=== PATIENT | male | born 1960 | race African-American/Black ===

== ENCOUNTER 2016-09-07 13:30 | Inpatient (IN) | payer OTHER ==
[2016-09-07 15:48] VITALS: BMI 27.6
[2016-09-07] MEDS ORDERED: MAG HYDROX/AL HYDROX/SIMETH 30 ML UNIT-DOSE CUP PO PRN (18:51)
[2016-09-07] MEDS ORDERED: MAGNESIUM CITRATE 300 ML BOTTLE PO PRN (18:51)
[2016-09-07] MEDS ORDERED: P-EPHED 60MG/TRIPROLIDI 2.5MG TABLET PO PRN (18:51)
[2016-09-07] MEDS ORDERED: ACETAMINOPHEN 325 MG TABLET (FP) PO PRN (18:51)
[2016-09-07] MEDS ORDERED: IBUPROFEN 400 MG TABLET (FP) PO PRN (18:51)
[2016-09-07] MEDS ORDERED: LOPERAMIDE HCL 2 MG CAPSULE PO PRN (18:51)
[2016-09-07] MEDS ORDERED: MAGNESIUM HYDROX 2400MG/30ML ORAL SUSPENSION 30 ML CUP PO PRN (18:51)
[2016-09-07] MEDS ORDERED: NICOTINE POLACRILEX 4 MG GUM BC PRN (18:51)
[2016-09-07] MEDS ORDERED: guaiFENesin/D-METHORPHAN HB 10 ML UNIT-DOSE CUPS PO PRN (18:51)
[2016-09-07] MEDS ORDERED: MENTHOL/PHENOL 1 EACH UD MM PRN (18:51)
--- NOTE | 2016-09-07 18:51 | HP ---
Admission ROS S - [facility] Chief Complaint: I WANT TO GO TO REHAB Allergies/Adverse Reactions: Allergies Allergy/AdvReac Type Severity Reaction Status Date / Time Penicillins Allergy Severe Swelling Verified 09/07/16 18:12 History of Present Illness: 55 YEARS OLD MALE WITH LONG HISTORY OF ALCOHOL OPIUM COCAINE NICOTINE DEPENDENCE HAS HYPERTENSION POSITIVE PPD AND DEPRESSION IS ADMITTED TO REHAB Exam Limitations: No Limitations - Ebola screening Have you traveled outside of the country in the last 21 days: No Have you had contact with anyone from an Ebola affected area: No Have you been sick,other than usual withdrawal symptoms: No Do you have a fever: No - Review of Systems Constitutional: Weight Stable EENT: reports: No Symptoms Reported Respiratory: reports: SOB with Exertion Cardiac: reports: No Symptoms Reported GI: reports: No Symptoms Reported : reports: No Symptoms Reported Musculoskeletal: reports: No Symptoms Reported Integumentary: reports: No Symptoms Reported Neuro: reports: No Symptoms reported Endocrine: reports: No Symptoms Reported Hematology: reports: No Symptoms Reported Psychiatric: reports: Judgement Intact, Orientated x3, Depressed Other Systems: Reviewed and Negative Patient History - Patient Medical History Hx Anemia: No Hx Asthma: No Hx Chronic Obstructive Pulmonary Disease (COPD): Yes Hx Cancer: No Hx Cardiac Disorders: No Hx Congestive Heart Failure: No Hx Hypertension: Yes Hx Hypercholesterolemia: No Hx Pacemaker: No HX Cerebrovascular Accident: No Hx Seizures: No Hx Dementia: No Hx Diabetes: No Hx Gastrointestinal Disorders: No Hx Liver Disease: No Hx Genitourinary Disorders: No Hx Renal Disease (ESRD): No Hx Thyroid Disease: No Hx Human Immunodeficiency Virus (HIV): No Hx Hepatitis C: No Hx Depression: Yes Hx Suicide Attempt: No Hx Bipolar Disorder: No Hx Schizophrenia: No - Patient Surgical History Past Surgical History: Yes Other Surgical History: 1987 THROAT CA CHEMO, SURGICAL 1994 REMISSION Anesthesia Reaction: No - PPD History Previous Implant?: Yes Documented Results: Positive w/proof Implanted On Prior [facility] Admission?: No PPD to be Administered?: No - Smoking Cessation Smoking history: Current every day smoker Have you smoked in the past 12 months: Yes Aproximately how many cigarettes per day: 20 Cigars Per Day: 0 Hx Chewing Tobacco Use: No Initiated information on smoking cessation: Yes 'Breaking Loose' booklet given: 09/07/16 - Substance & Tx. History Hx Alcohol Use: Yes Hx Substance Use: Yes Substance Use Type: Alcohol, Cocaine, Heroin Hx Substance Use Treatment: No - Substances Abused Alcohol Route: Oral Frequency: Daily Amount used: FIFTH RUM Age of first use: 9 Date of Last Use: 08/30/16 Heroin Route: Inhalation Frequency: Daily Amount used: 2 BAG Age of first use: 9 Date of Last Use: 08/30/16 Family Disease History - Family Disease History Family History: Unable to Obtain (ADOPTED) Admission Physical Exam [facility] - Vital Signs Vital Signs: Vital Signs - 24 hr 09/07/16 15:41 Temperature 98.6 F Pulse Rate 79 Respiratory 20 Rate Blood Pressure 196/100 - Physical General Appearance: Yes: No Apparent Distress, Nourished, Appropriately Dressed HEENTM: Yes: Hearing grossly Normal, Normal ENT Inspection, Normocephalic, Normal Voice Respiratory: Yes: Chest Non-Tender, No Respiratory Distress, No Accessory Muscle Use, Hyperresonant, Inspiration Neck: Yes: Supple, Trachea in good position Breast: Yes: Breasts Symetrical Cardiology: Yes: Regular Rhythm, Regular Rate, S1, S2 Abdominal: Yes: Non Tender, Soft Genitourinary: Yes: Within Normal Limits Back: Yes: Normal Inspection Musculoskeletal: Yes: full range of Motion, Gait Steady Extremities: Yes: Normal Inspection, Normal Range of Motion, Non-Tender Neurological: Yes: Fully Oriented, Alert, Motor Strength 5/5, Normal Mood/Affect , Normal Response Integumentary: Yes: Warm Lymphatic: Yes: Within Normal Limits - Diagnostic (1) Alcohol dependence with uncomplicated withdrawal Current Visit: Yes Status: Acute (2) Opioid dependence with withdrawal Current Visit: Yes Status: Acute (3) Cocaine dependence, uncomplicated Current Visit: Yes Status: Chronic (4) Positive PPD, treated Current Visit: Yes Status: Resolved (5) Hypertension Current Visit: Yes Status: Chronic Qualifiers: Hypertension type: essential hypertension Qualified Code(s): I10 - Essential (primary) hypertension (6) COPD (chronic obstructive pulmonary disease) Current Visit: Yes Status: Chronic Qualifiers: COPD type: emphysema Emphysema type: other Qualified Code(s): J43.8 - Other emphysema (7) Depression (emotion) Current Visit: Yes Status: Suspected Qualifiers: Depression Type: dysthymia Qualified Code(s): F34.1 - Dysthymic disorder Cleared for Admission [facility] - Detox or Rehab [facility] Level of Care: Observation Bed Detox Regimen/Protocol: Not Applicable Claeared for Rehab Admission: Yes [facility] Breath Alcohol Content Breath Alcohol Content: 0 Urine Drug Screen - Results Drug Screen Negative: No Urine Drug Screen Results: STEPHEN-Cocaine
[2016-09-07] MEDS: amLODIPine BESYLATE 10 MG TABLET (FP) PO SCH (20:51)
[2016-09-07] MEDS: diphenhydrAMINE HCL 50 MG CAPSULE PO PRN (20:51)
[2016-09-07] MEDS: THIAMINE HCL 100 MG TABLET (FP) PO SCH (21:52)
[2016-09-07 23:57] LABS: URINE APPEARANCE CLEAR; URINE BILIRUBIN NEGATIVE (NEGATIVE); URINE BLOOD NEGATIVE (NEGATIVE); URINE COLOR LTYELLOW; URINE GLUCOSE (UA) NEGATIVE (NEGATIVE); URINE KETONE NEGATIVE (NEGATIVE); URINE LEUK ESTERASE NEGATIVE (NEGATIVE); URINE NITRITE NEGATIVE (NEGATIVE); URINE UROBILINOGEN NEGATIVE E.U./dl (0.2-1.0)
[2016-09-07 23:59] LABS: URINE PROTEIN 1+ (NEGATIVE)
[2016-09-08 00:02] LABS: URINE MUCUS RARE; URINE WBC 1 /hpf (3-5)
[2016-09-08] MEDS: diphenhydrAMINE HCL 50 MG CAPSULE PO PRN ×2 (01:50→22:14)
[2016-09-08] MEDS: amLODIPine BESYLATE 10 MG TABLET (FP) PO SCH (08:00)
[2016-09-08] MEDS ORDERED: ALBUTEROL SO4 6.7 GM HFA INHALER IH PRN (09:28)
[2016-09-08] MEDS: NICOTINE 21 MG/24 HOURS TOPICAL PATCH TD SCH (09:37)
[2016-09-08] MEDS: PRENATAL VITAMINS W/ FOLIC ACID TABLET (FP) PO SCH (09:37)
--- NOTE | 2016-09-08 09:57 | EKG ---
Test Reason : Blood Pressure : / mmHG Vent. Rate : 076 BPM Atrial Rate : 076 BPM P-R Int : 144 ms QRS Dur : 084 ms QT Int : 428 ms P-R-T Axes : 072 071 062 degrees QTc Int : 481 ms NORMAL SINUS RHYTHM BIATRIAL ENLARGEMENT PROLONGED QT ABNORMAL ECG WHEN COMPARED WITH ECG OF 07-SEP-2016 20:18, NO SIGNIFICANT CHANGE WAS FOUND Confirmed by SAMSON DEMPSEY MD ([id number]) on 09/08/2016 9:57:22 AM Referred By: Confirmed By:SAMSON DEMPSEY MD
--- NOTE | 2016-09-08 09:58 | EKG ---
Test Reason : Blood Pressure : / mmHG Vent. Rate : 084 BPM Atrial Rate : 084 BPM P-R Int : 144 ms QRS Dur : 088 ms QT Int : 386 ms P-R-T Axes : 069 068 053 degrees QTc Int : 456 ms NORMAL SINUS RHYTHM BIATRIAL ENLARGEMENT POSSIBLE ANTERIOR INFARCT , AGE UNDETERMINED ABNORMAL ECG NO PREVIOUS ECGS AVAILABLE Confirmed by SAMSON DEMPSEY MD ([id number]) on 09/08/2016 9:58:41 AM Referred By: Confirmed By:SAMSON DEMPSEY MD
[2016-09-08] MEDS: FUROSEMIDE 20 MG TABLET (FP) PO SCH (11:46)
[2016-09-08] MEDS: SPIRONOLACTONE 25 MG TABLET (FP) PO SCH ×2 (11:46→18:40)
[2016-09-08] MEDS: ENALAPRIL MALEATE 10 MG TABLET (FP) PO SCH ×2 (11:46→22:13)
[2016-09-08 13:28] LABS: MCH 22.5 pg (25.7-33.7); MEAN CELL VOLUME 70.5 fl (80-96); MEAN PLT VOLUME 10.3 fl (7.5-11.1); RDW 25.8 % (11.9-15.9); WHITE BLOOD COUNT 9.2 K/mm3 (4.0-10.0)
[2016-09-08 13:38] LABS: ALBUMIN 3.9 g/dl (3.4-5.0); ALK PHOS 84 U/L (45-117); ANION GAP 12 (8-16); BILIRUBIN,TOTAL 0.4 mg/dL (0.2-1.0); CALCIUM 8.8 mg/dL (8.5-10.1); CO2 27 mmol/L (21-32); CREATININE 1.4 mg/dL (0.7-1.3); GLUCOSE,RANDOM 165 mg/dL (74-106); SGOT/AST 19 U/L (15-37); SGPT/ALT 28 U/L (12-78); TOT PROT 7.7 g/dl (6.4-8.2)
[2016-09-08 13:50] LABS: PLATELET COUNT 144 K/MM3 (134-434); PLATELET ESTIMATE ADEQUATE (NORMAL)
[2016-09-08 13:51] LABS: ANISOCYTOSIS 1+; FRAGMENTED CELL 1+; HYPOCHROMIA 1+; OVALOCYTES 2+; PLATELET COMMENT2 MOD LARGE PLTS; PLATELET COMMENT3 FEW GIANT PLTS; POIKILOCYTOSIS 2+
[2016-09-08 13:52] LABS: ACANTHOCYTES 1+; BURR CELLS 3+
--- NOTE | 2016-09-08 14:03 | PN ---
[facility] Progress Note Note: Pt. did not tell us that he has type II DM,asthma and takes at least 3 meds for HTN. Vital Signs - 8 hr 09/08/16 09/08/16 09:27 09:28 Pulse Rate 81 86 Respiratory 18 18 Rate Blood Pressure 148/102 159/104 Laboratory Tests 09/07/16 09/08/16 09/08/16 20:27 09:40 09:40 WBC 9.2 RBC 5.92 H Hgb 13.3 Hct 41.7 MCV 70.5 L MCHC 32.0 RDW 25.8 H Plt Count 144 MPV 10.3 Platelet Estimate Adequate Platelet Comment Mod large plts Hypochromic-Microcytic 1+ Poikilocytosis 2+ Anisocytosis 1+ Ovalocytes 2+ Stephenson Cells 3+ Acanthocytes (Spur) 1+ Fragmented RBCs 1+ Morphology Comment Slide scanned Sodium 141 Potassium 3.7 Chloride 102 Carbon Dioxide 27 Anion Gap 12 BUN 14 Creatinine 1.4 H Creat Clearance w eGFR 52.24 Random Glucose 165 H Calcium 8.8 Total Bilirubin 0.4 AST 19 ALT 28 Alkaline Phosphatase 84 Total Protein 7.7 Albumin 3.9 Urine Color Ltyellow Urine Appearance Clear Urine pH 5.0 Ur Specific [place] 1.020 Urine Protein 1+ H Urine Glucose (UA) Negative Urine Ketones Negative Urine Blood Negative Urine Nitrite Negative Urine Bilirubin Negative Urine Urobilinogen Negative Ur Leukocyte Esterase Negative Urine RBC None Urine WBC 1 Urine Mucus Rare labs noted,creatinine 1.4 P : Resume metformin Increase PO fluid Repeat BMP on 09/10/16
[2016-09-08] MEDS: metFORMIN HCL 500 MG TABLET (FP) PO SCH (16:34)
[2016-09-08] MEDS: THIAMINE HCL 100 MG TABLET (FP) PO SCH (22:13)
[2016-09-08] MEDS: ATORVASTATIN CA 20 MG TABLET (FP) PO SCH (22:13)
[2016-09-09] MEDS: diphenhydrAMINE HCL 50 MG CAPSULE PO PRN ×2 (02:02→21:20)
[2016-09-09] MEDS: metFORMIN HCL 500 MG TABLET (FP) PO SCH ×2 (06:45→16:46)
[2016-09-09] MEDS ORDERED: amLODIPine BESYLATE 10 MG TABLET (FP) PO SCH (07:36)
[2016-09-09] MEDS: PRENATAL VITAMINS W/ FOLIC ACID TABLET (FP) PO SCH (09:34)
[2016-09-09] MEDS: NICOTINE 21 MG/24 HOURS TOPICAL PATCH TD SCH (09:35)
[2016-09-09] MEDS: SPIRONOLACTONE 25 MG TABLET (FP) PO SCH ×2 (09:35→17:59)
[2016-09-09] MEDS: ENALAPRIL MALEATE 10 MG TABLET (FP) PO SCH ×2 (09:35→21:20)
[2016-09-09] MEDS: FUROSEMIDE 20 MG TABLET (FP) PO SCH (09:35)
[2016-09-09] MEDS: ATORVASTATIN CA 20 MG TABLET (FP) PO SCH (21:20)
[2016-09-09] MEDS: THIAMINE HCL 100 MG TABLET (FP) PO SCH (21:20)
[2016-09-10] MEDS: diphenhydrAMINE HCL 50 MG CAPSULE PO PRN (01:28)
[2016-09-10] MEDS: amLODIPine BESYLATE 10 MG TABLET (FP) PO SCH (06:27)
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
[2016-09-10] MEDS: metFORMIN HCL 500 MG TABLET (FP) PO SCH ×2 (07:08→16:49)
[2016-09-10] MEDS: SPIRONOLACTONE 25 MG TABLET (FP) PO SCH ×2 (09:46→17:06)
[2016-09-10] MEDS: PRENATAL VITAMINS W/ FOLIC ACID TABLET (FP) PO SCH (09:46)
[2016-09-10] MEDS: FUROSEMIDE 20 MG TABLET (FP) PO SCH (09:46)
[2016-09-10] MEDS: NICOTINE 21 MG/24 HOURS TOPICAL PATCH TD SCH (09:47)
[2016-09-10] MEDS: ENALAPRIL MALEATE 10 MG TABLET (FP) PO SCH ×2 (10:46→21:34)
[2016-09-10 20:09] LABS: HIV 1 & 2 AB NEGATIVE; HIV 1 AGp24 NEGATIVE
[2016-09-10] MEDS: THIAMINE HCL 100 MG TABLET (FP) PO SCH (21:32)
[2016-09-10] MEDS: ATORVASTATIN CA 20 MG TABLET (FP) PO SCH (21:32)
[2016-09-10] MEDS: QUEtiapine FUMARATE 100 MG TABLET (FP) PO SCH (21:34)
[2016-09-10] MEDS: MIRTAZAPINE 30 MG TABLET (FP) PO SCH (21:34)
[2016-09-11] MEDS: amLODIPine BESYLATE 10 MG TABLET (FP) PO SCH (06:10)
[2016-09-11] MEDS: metFORMIN HCL 500 MG TABLET (FP) PO SCH ×2 (07:17→16:53)
[2016-09-11] MEDS: PRENATAL VITAMINS W/ FOLIC ACID TABLET (FP) PO SCH (09:38)
[2016-09-11] MEDS: ENALAPRIL MALEATE 10 MG TABLET (FP) PO SCH ×2 (09:38→21:53)
[2016-09-11] MEDS: SPIRONOLACTONE 25 MG TABLET (FP) PO SCH ×2 (09:39→17:10)
[2016-09-11] MEDS: FUROSEMIDE 20 MG TABLET (FP) PO SCH (09:39)
[2016-09-11] MEDS: NICOTINE 21 MG/24 HOURS TOPICAL PATCH TD SCH (10:33)
[2016-09-11] MEDS: THIAMINE HCL 100 MG TABLET (FP) PO SCH (21:52)
[2016-09-11] MEDS: MIRTAZAPINE 30 MG TABLET (FP) PO SCH (21:52)
[2016-09-11] MEDS: QUEtiapine FUMARATE 100 MG TABLET (FP) PO SCH (21:52)
[2016-09-11] MEDS: ATORVASTATIN CA 20 MG TABLET (FP) PO SCH (21:53)
[2016-09-11] MEDS: diphenhydrAMINE HCL 50 MG CAPSULE PO PRN (21:53)
[2016-09-12] MEDS: amLODIPine BESYLATE 10 MG TABLET (FP) PO SCH (06:46)
[2016-09-12] MEDS: metFORMIN HCL 500 MG TABLET (FP) PO SCH ×2 (07:17→16:54)
[2016-09-12] MEDS: PRENATAL VITAMINS W/ FOLIC ACID TABLET (FP) PO SCH (10:01)
[2016-09-12] MEDS: SPIRONOLACTONE 25 MG TABLET (FP) PO SCH ×2 (10:01→18:05)
[2016-09-12] MEDS: FUROSEMIDE 20 MG TABLET (FP) PO SCH (10:02)
[2016-09-12] MEDS: NICOTINE 21 MG/24 HOURS TOPICAL PATCH TD SCH (10:02)
[2016-09-12] MEDS: ENALAPRIL MALEATE 10 MG TABLET (FP) PO SCH ×2 (10:02→21:18)
[2016-09-12] MEDS: THIAMINE HCL 100 MG TABLET (FP) PO SCH (21:16)
[2016-09-12] MEDS: ATORVASTATIN CA 20 MG TABLET (FP) PO SCH (21:16)
[2016-09-12] MEDS: MIRTAZAPINE 30 MG TABLET (FP) PO SCH (21:16)
[2016-09-12] MEDS: QUEtiapine FUMARATE 100 MG TABLET (FP) PO SCH (21:16)
[2016-09-12] MEDS: diphenhydrAMINE HCL 50 MG CAPSULE PO PRN (21:16)
[2016-09-13] MEDS: amLODIPine BESYLATE 10 MG TABLET (FP) PO SCH (06:29)
[2016-09-13] MEDS: metFORMIN HCL 500 MG TABLET (FP) PO SCH ×2 (06:29→17:14)
[2016-09-13] MEDS: ENALAPRIL MALEATE 10 MG TABLET (FP) PO SCH ×2 (10:11→22:01)
[2016-09-13] MEDS: FUROSEMIDE 20 MG TABLET (FP) PO SCH (10:11)
[2016-09-13] MEDS: SPIRONOLACTONE 25 MG TABLET (FP) PO SCH ×2 (10:11→17:14)
[2016-09-13] MEDS: PRENATAL VITAMINS W/ FOLIC ACID TABLET (FP) PO SCH (10:11)
[2016-09-13] MEDS: NICOTINE 21 MG/24 HOURS TOPICAL PATCH TD SCH (10:12)
[2016-09-13] MEDS: THIAMINE HCL 100 MG TABLET (FP) PO SCH (22:01)
[2016-09-13] MEDS: MIRTAZAPINE 30 MG TABLET (FP) PO SCH (22:01)
[2016-09-13] MEDS: diphenhydrAMINE HCL 50 MG CAPSULE PO PRN (22:01)
[2016-09-13] MEDS: ATORVASTATIN CA 20 MG TABLET (FP) PO SCH (22:02)
[2016-09-13] MEDS: QUEtiapine FUMARATE 100 MG TABLET (FP) PO SCH (22:02)
[2016-09-14] MEDS: metFORMIN HCL 500 MG TABLET (FP) PO SCH ×2 (06:07→16:56)
[2016-09-14] MEDS: amLODIPine BESYLATE 10 MG TABLET (FP) PO SCH (06:07)
[2016-09-14] MEDS: PRENATAL VITAMINS W/ FOLIC ACID TABLET (FP) PO SCH (09:48)
[2016-09-14] MEDS: NICOTINE 21 MG/24 HOURS TOPICAL PATCH TD SCH (09:48)
[2016-09-14] MEDS: SPIRONOLACTONE 25 MG TABLET (FP) PO SCH ×2 (09:48→17:14)
[2016-09-14] MEDS: ENALAPRIL MALEATE 10 MG TABLET (FP) PO SCH ×2 (09:48→21:20)
[2016-09-14] MEDS: FUROSEMIDE 20 MG TABLET (FP) PO SCH (09:48)
[2016-09-14] MEDS: diphenhydrAMINE HCL 50 MG CAPSULE PO PRN (21:20)
[2016-09-14] MEDS: ATORVASTATIN CA 20 MG TABLET (FP) PO SCH (21:20)
[2016-09-14] MEDS: QUEtiapine FUMARATE 100 MG TABLET (FP) PO SCH (21:20)
[2016-09-14] MEDS: THIAMINE HCL 100 MG TABLET (FP) PO SCH (21:20)
[2016-09-14] MEDS: MIRTAZAPINE 30 MG TABLET (FP) PO SCH (21:22)
[2016-09-15] MEDS: amLODIPine BESYLATE 10 MG TABLET (FP) PO SCH (06:21)
[2016-09-15] MEDS: metFORMIN HCL 500 MG TABLET (FP) PO SCH ×2 (06:59→17:02)
[2016-09-15] MEDS: ENALAPRIL MALEATE 10 MG TABLET (FP) PO SCH ×2 (09:37→21:23)
[2016-09-15] MEDS: SPIRONOLACTONE 25 MG TABLET (FP) PO SCH ×2 (09:37→17:02)
[2016-09-15] MEDS: PRENATAL VITAMINS W/ FOLIC ACID TABLET (FP) PO SCH (09:37)
[2016-09-15] MEDS: FUROSEMIDE 20 MG TABLET (FP) PO SCH (09:37)
[2016-09-15] MEDS: NICOTINE 21 MG/24 HOURS TOPICAL PATCH TD SCH (09:38)
[2016-09-15] MEDS: diphenhydrAMINE HCL 50 MG CAPSULE PO PRN (21:23)
[2016-09-15] MEDS: ATORVASTATIN CA 20 MG TABLET (FP) PO SCH (21:23)
[2016-09-15] MEDS: QUEtiapine FUMARATE 100 MG TABLET (FP) PO SCH (21:23)
[2016-09-15] MEDS: MIRTAZAPINE 30 MG TABLET (FP) PO SCH (21:23)
[2016-09-15] MEDS: THIAMINE HCL 100 MG TABLET (FP) PO SCH (21:23)
[2016-09-16] MEDS: amLODIPine BESYLATE 10 MG TABLET (FP) PO SCH (06:36)
[2016-09-16] MEDS: metFORMIN HCL 500 MG TABLET (FP) PO SCH ×2 (07:07→16:58)
[2016-09-16] MEDS: NICOTINE 21 MG/24 HOURS TOPICAL PATCH TD SCH (10:37)
[2016-09-16] MEDS: PRENATAL VITAMINS W/ FOLIC ACID TABLET (FP) PO SCH (10:37)
[2016-09-16] MEDS: FUROSEMIDE 20 MG TABLET (FP) PO SCH (10:37)
[2016-09-16] MEDS: ENALAPRIL MALEATE 10 MG TABLET (FP) PO SCH ×2 (10:37→21:22)
[2016-09-16] MEDS: SPIRONOLACTONE 25 MG TABLET (FP) PO SCH ×2 (14:36→17:24)
[2016-09-16] MEDS: THIAMINE HCL 100 MG TABLET (FP) PO SCH (21:22)
[2016-09-16] MEDS: QUEtiapine FUMARATE 100 MG TABLET (FP) PO SCH (21:22)
[2016-09-16] MEDS: ATORVASTATIN CA 20 MG TABLET (FP) PO SCH (21:22)
[2016-09-16] MEDS: MIRTAZAPINE 30 MG TABLET (FP) PO SCH (21:22)
[2016-09-17] MEDS: amLODIPine BESYLATE 10 MG TABLET (FP) PO SCH (06:11)
[2016-09-17] MEDS: metFORMIN HCL 500 MG TABLET (FP) PO SCH ×2 (07:19→16:57)
[2016-09-17] MEDS: SPIRONOLACTONE 25 MG TABLET (FP) PO SCH ×2 (10:47→17:58)
[2016-09-17] MEDS: NICOTINE 21 MG/24 HOURS TOPICAL PATCH TD SCH (10:47)
[2016-09-17] MEDS: FUROSEMIDE 20 MG TABLET (FP) PO SCH (10:47)
[2016-09-17] MEDS: ENALAPRIL MALEATE 10 MG TABLET (FP) PO SCH ×2 (10:47→21:35)
[2016-09-17] MEDS: PRENATAL VITAMINS W/ FOLIC ACID TABLET (FP) PO SCH (10:47)
[2016-09-17] MEDS: QUEtiapine FUMARATE 100 MG TABLET (FP) PO SCH (21:35)
[2016-09-17] MEDS: MIRTAZAPINE 30 MG TABLET (FP) PO SCH (21:35)
[2016-09-17] MEDS: diphenhydrAMINE HCL 50 MG CAPSULE PO PRN (21:35)
[2016-09-17] MEDS: THIAMINE HCL 100 MG TABLET (FP) PO SCH (21:35)
[2016-09-17] MEDS: ATORVASTATIN CA 20 MG TABLET (FP) PO SCH (21:35)
[2016-09-18] MEDS: amLODIPine BESYLATE 10 MG TABLET (FP) PO SCH (06:05)
[2016-09-18] MEDS: metFORMIN HCL 500 MG TABLET (FP) PO SCH ×2 (06:05→17:25)
[2016-09-18] MEDS: SPIRONOLACTONE 25 MG TABLET (FP) PO SCH ×2 (09:50→17:49)
[2016-09-18] MEDS: PRENATAL VITAMINS W/ FOLIC ACID TABLET (FP) PO SCH (09:50)
[2016-09-18] MEDS: ENALAPRIL MALEATE 10 MG TABLET (FP) PO SCH ×2 (09:50→21:26)
[2016-09-18] MEDS: FUROSEMIDE 20 MG TABLET (FP) PO SCH (09:50)
[2016-09-18] MEDS: MIRTAZAPINE 30 MG TABLET (FP) PO SCH (21:26)
[2016-09-18] MEDS: THIAMINE HCL 100 MG TABLET (FP) PO SCH (21:26)
[2016-09-18] MEDS: ATORVASTATIN CA 20 MG TABLET (FP) PO SCH (21:27)
[2016-09-18] MEDS: QUEtiapine FUMARATE 100 MG TABLET (FP) PO SCH (21:27)
[2016-09-19] MEDS: hydrOXYzine PAMOATE 50 MG CAPSULE (FP) PO PRN (03:52)
[2016-09-19] MEDS: amLODIPine BESYLATE 10 MG TABLET (FP) PO SCH (06:29)
[2016-09-19] MEDS: metFORMIN HCL 500 MG TABLET (FP) PO SCH ×2 (07:03→16:39)
[2016-09-19] MEDS: FUROSEMIDE 20 MG TABLET (FP) PO SCH (09:29)
[2016-09-19] MEDS: PRENATAL VITAMINS W/ FOLIC ACID TABLET (FP) PO SCH (09:29)
[2016-09-19] MEDS: ENALAPRIL MALEATE 10 MG TABLET (FP) PO SCH ×2 (09:29→21:26)
[2016-09-19] MEDS: SPIRONOLACTONE 25 MG TABLET (FP) PO SCH ×2 (09:29→17:02)
[2016-09-19] MEDS: MIRTAZAPINE 30 MG TABLET (FP) PO SCH (21:26)
[2016-09-19] MEDS: ATORVASTATIN CA 20 MG TABLET (FP) PO SCH (21:26)
[2016-09-19] MEDS: QUEtiapine FUMARATE 100 MG TABLET (FP) PO SCH (21:26)
[2016-09-19] MEDS: THIAMINE HCL 100 MG TABLET (FP) PO SCH (21:26)
[2016-09-19] MEDS: diphenhydrAMINE HCL 50 MG CAPSULE PO PRN (21:26)
[2016-09-20] MEDS: hydrOXYzine PAMOATE 50 MG CAPSULE (FP) PO PRN (02:56)
[2016-09-20] MEDS: amLODIPine BESYLATE 10 MG TABLET (FP) PO SCH (05:52)
[2016-09-20] MEDS: metFORMIN HCL 500 MG TABLET (FP) PO SCH ×2 (06:41→16:29)
[2016-09-20] MEDS: PRENATAL VITAMINS W/ FOLIC ACID TABLET (FP) PO SCH (09:40)
[2016-09-20] MEDS: ENALAPRIL MALEATE 10 MG TABLET (FP) PO SCH ×2 (09:40→21:03)
[2016-09-20] MEDS: FUROSEMIDE 20 MG TABLET (FP) PO SCH (09:41)
[2016-09-20] MEDS: SPIRONOLACTONE 25 MG TABLET (FP) PO SCH ×2 (09:41→17:02)
[2016-09-20] MEDS: ATORVASTATIN CA 20 MG TABLET (FP) PO SCH (21:03)
[2016-09-20] MEDS: QUEtiapine FUMARATE 100 MG TABLET (FP) PO SCH (21:03)
[2016-09-20] MEDS: MIRTAZAPINE 30 MG TABLET (FP) PO SCH (21:04)
[2016-09-20] MEDS: diphenhydrAMINE HCL 50 MG CAPSULE PO PRN (21:04)
[2016-09-20] MEDS: THIAMINE HCL 100 MG TABLET (FP) PO SCH (21:04)
[2016-09-21] MEDS: amLODIPine BESYLATE 10 MG TABLET (FP) PO SCH (05:59)
[2016-09-21] MEDS: metFORMIN HCL 500 MG TABLET (FP) PO SCH ×2 (05:59→16:44)
[2016-09-21] MEDS: SPIRONOLACTONE 25 MG TABLET (FP) PO SCH ×2 (09:39→17:05)
[2016-09-21] MEDS: FUROSEMIDE 20 MG TABLET (FP) PO SCH (09:39)
[2016-09-21] MEDS: ENALAPRIL MALEATE 10 MG TABLET (FP) PO SCH ×2 (09:39→21:32)
[2016-09-21] MEDS: PRENATAL VITAMINS W/ FOLIC ACID TABLET (FP) PO SCH (09:40)
[2016-09-21] MEDS: ATORVASTATIN CA 20 MG TABLET (FP) PO SCH (21:32)
[2016-09-21] MEDS: diphenhydrAMINE HCL 50 MG CAPSULE PO PRN (21:32)
[2016-09-21] MEDS: QUEtiapine FUMARATE 100 MG TABLET (FP) PO SCH (21:32)
[2016-09-21] MEDS: MIRTAZAPINE 30 MG TABLET (FP) PO SCH (21:32)
[2016-09-21] MEDS: THIAMINE HCL 100 MG TABLET (FP) PO SCH (21:32)
[2016-09-22] MEDS: metFORMIN HCL 500 MG TABLET (FP) PO SCH ×2 (06:31→17:20)
[2016-09-22] MEDS: amLODIPine BESYLATE 10 MG TABLET (FP) PO SCH (06:31)
[2016-09-22] MEDS: PRENATAL VITAMINS W/ FOLIC ACID TABLET (FP) PO SCH (09:33)
[2016-09-22] MEDS: FUROSEMIDE 20 MG TABLET (FP) PO SCH (09:33)
[2016-09-22] MEDS: SPIRONOLACTONE 25 MG TABLET (FP) PO SCH ×2 (09:34→17:46)
[2016-09-22] MEDS: ENALAPRIL MALEATE 10 MG TABLET (FP) PO SCH ×2 (09:34→21:01)
[2016-09-22] MEDS: ATORVASTATIN CA 20 MG TABLET (FP) PO SCH (21:01)
[2016-09-22] MEDS: THIAMINE HCL 100 MG TABLET (FP) PO SCH (21:01)
[2016-09-22] MEDS: QUEtiapine FUMARATE 100 MG TABLET (FP) PO SCH (21:01)
[2016-09-22] MEDS: MIRTAZAPINE 30 MG TABLET (FP) PO SCH (21:01)
[2016-09-22] MEDS: diphenhydrAMINE HCL 50 MG CAPSULE PO PRN (21:02)
[2016-09-23] MEDS: metFORMIN HCL 500 MG TABLET (FP) PO SCH ×2 (06:19→17:20)
[2016-09-23] MEDS: amLODIPine BESYLATE 10 MG TABLET (FP) PO SCH (06:19)
[2016-09-23] MEDS: PRENATAL VITAMINS W/ FOLIC ACID TABLET (FP) PO SCH (09:33)
[2016-09-23] MEDS: ENALAPRIL MALEATE 10 MG TABLET (FP) PO SCH ×2 (09:33→21:53)
[2016-09-23] MEDS: SPIRONOLACTONE 25 MG TABLET (FP) PO SCH ×2 (09:33→17:20)
[2016-09-23] MEDS: FUROSEMIDE 20 MG TABLET (FP) PO SCH (09:33)
[2016-09-23] MEDS: ATORVASTATIN CA 20 MG TABLET (FP) PO SCH (21:53)
[2016-09-23] MEDS: THIAMINE HCL 100 MG TABLET (FP) PO SCH (21:53)
[2016-09-23] MEDS: QUEtiapine FUMARATE 100 MG TABLET (FP) PO SCH (21:53)
[2016-09-23] MEDS: MIRTAZAPINE 30 MG TABLET (FP) PO SCH (21:53)
[2016-09-24] MEDS: amLODIPine BESYLATE 10 MG TABLET (FP) PO SCH (06:15)
[2016-09-24] MEDS: metFORMIN HCL 500 MG TABLET (FP) PO SCH ×2 (06:15→16:37)
[2016-09-24] MEDS: ENALAPRIL MALEATE 10 MG TABLET (FP) PO SCH ×2 (09:49→21:34)
[2016-09-24] MEDS: SPIRONOLACTONE 25 MG TABLET (FP) PO SCH ×2 (09:49→17:01)
[2016-09-24] MEDS: PRENATAL VITAMINS W/ FOLIC ACID TABLET (FP) PO SCH (09:50)
[2016-09-24] MEDS: FUROSEMIDE 20 MG TABLET (FP) PO SCH (09:50)
[2016-09-24] MEDS: QUEtiapine FUMARATE 100 MG TABLET (FP) PO SCH (21:34)
[2016-09-24] MEDS: diphenhydrAMINE HCL 50 MG CAPSULE PO PRN (21:34)
[2016-09-24] MEDS: THIAMINE HCL 100 MG TABLET (FP) PO SCH (21:34)
[2016-09-24] MEDS: MIRTAZAPINE 30 MG TABLET (FP) PO SCH (21:34)
[2016-09-24] MEDS: ATORVASTATIN CA 20 MG TABLET (FP) PO SCH (21:34)
[2016-09-25] MEDS: amLODIPine BESYLATE 10 MG TABLET (FP) PO SCH (06:23)
[2016-09-25] MEDS: metFORMIN HCL 500 MG TABLET (FP) PO SCH ×2 (06:23→17:12)
[2016-09-25] MEDS: SPIRONOLACTONE 25 MG TABLET (FP) PO SCH ×2 (09:44→17:43)
[2016-09-25] MEDS: PRENATAL VITAMINS W/ FOLIC ACID TABLET (FP) PO SCH (09:44)
[2016-09-25] MEDS: ENALAPRIL MALEATE 10 MG TABLET (FP) PO SCH ×2 (09:44→21:46)
[2016-09-25] MEDS: FUROSEMIDE 20 MG TABLET (FP) PO SCH (09:44)
[2016-09-25] MEDS: THIAMINE HCL 100 MG TABLET (FP) PO SCH (21:46)
[2016-09-25] MEDS: ATORVASTATIN CA 20 MG TABLET (FP) PO SCH (21:46)
[2016-09-25] MEDS: MIRTAZAPINE 30 MG TABLET (FP) PO SCH (21:46)
[2016-09-25] MEDS: QUEtiapine FUMARATE 100 MG TABLET (FP) PO SCH (21:47)
[2016-09-25] MEDS: diphenhydrAMINE HCL 50 MG CAPSULE PO PRN (21:47)
[2016-09-26] MEDS: amLODIPine BESYLATE 10 MG TABLET (FP) PO SCH (06:36)
[2016-09-26] MEDS: metFORMIN HCL 500 MG TABLET (FP) PO SCH ×2 (06:36→16:49)
[2016-09-26] MEDS: SPIRONOLACTONE 25 MG TABLET (FP) PO SCH ×2 (09:29→17:01)
[2016-09-26] MEDS: ENALAPRIL MALEATE 10 MG TABLET (FP) PO SCH ×2 (09:29→21:16)
[2016-09-26] MEDS: FUROSEMIDE 20 MG TABLET (FP) PO SCH (09:30)
[2016-09-26] MEDS: PRENATAL VITAMINS W/ FOLIC ACID TABLET (FP) PO SCH (09:30)
[2016-09-26] MEDS: THIAMINE HCL 100 MG TABLET (FP) PO SCH (21:16)
[2016-09-26] MEDS: MIRTAZAPINE 30 MG TABLET (FP) PO SCH (21:16)
[2016-09-26] MEDS: ATORVASTATIN CA 20 MG TABLET (FP) PO SCH (21:16)
[2016-09-26] MEDS: diphenhydrAMINE HCL 50 MG CAPSULE PO PRN (21:16)
[2016-09-26] MEDS: QUEtiapine FUMARATE 100 MG TABLET (FP) PO SCH (21:16)
[2016-09-27] MEDS: amLODIPine BESYLATE 10 MG TABLET (FP) PO SCH (06:11)
[2016-09-27] MEDS: metFORMIN HCL 500 MG TABLET (FP) PO SCH ×2 (06:11→17:48)
[2016-09-27] MEDS: FUROSEMIDE 20 MG TABLET (FP) PO SCH (09:30)
[2016-09-27] MEDS: PRENATAL VITAMINS W/ FOLIC ACID TABLET (FP) PO SCH (09:30)
[2016-09-27] MEDS: SPIRONOLACTONE 25 MG TABLET (FP) PO SCH ×2 (09:30→17:48)
[2016-09-27] MEDS: ENALAPRIL MALEATE 10 MG TABLET (FP) PO SCH ×2 (09:30→21:21)
[2016-09-27] MEDS: MIRTAZAPINE 30 MG TABLET (FP) PO SCH (21:21)
[2016-09-27] MEDS: ATORVASTATIN CA 20 MG TABLET (FP) PO SCH (21:21)
[2016-09-27] MEDS: THIAMINE HCL 100 MG TABLET (FP) PO SCH (21:21)
[2016-09-27] MEDS: QUEtiapine FUMARATE 100 MG TABLET (FP) PO SCH (21:21)
[2016-09-27] MEDS: diphenhydrAMINE HCL 50 MG CAPSULE PO PRN (21:22)
[2016-09-28] MEDS: amLODIPine BESYLATE 10 MG TABLET (FP) PO SCH (06:26)
[2016-09-28] MEDS: metFORMIN HCL 500 MG TABLET (FP) PO SCH ×2 (06:26→16:42)
[2016-09-28] MEDS: SPIRONOLACTONE 25 MG TABLET (FP) PO SCH ×2 (09:28→17:02)
[2016-09-28] MEDS: PRENATAL VITAMINS W/ FOLIC ACID TABLET (FP) PO SCH (09:28)
[2016-09-28] MEDS: FUROSEMIDE 20 MG TABLET (FP) PO SCH (09:28)
[2016-09-28] MEDS: ENALAPRIL MALEATE 10 MG TABLET (FP) PO SCH ×2 (09:28→21:08)
[2016-09-28] MEDS: diphenhydrAMINE HCL 50 MG CAPSULE PO PRN (21:08)
[2016-09-28] MEDS: ATORVASTATIN CA 20 MG TABLET (FP) PO SCH (21:08)
[2016-09-28] MEDS: MIRTAZAPINE 30 MG TABLET (FP) PO SCH (21:09)
[2016-09-28] MEDS: QUEtiapine FUMARATE 100 MG TABLET (FP) PO SCH (21:09)
[2016-09-28] MEDS: THIAMINE HCL 100 MG TABLET (FP) PO SCH (21:09)
[2016-09-29] MEDS: amLODIPine BESYLATE 10 MG TABLET (FP) PO SCH (06:00)
[2016-09-29] MEDS: metFORMIN HCL 500 MG TABLET (FP) PO SCH ×2 (07:04→16:34)
[2016-09-29] MEDS: PRENATAL VITAMINS W/ FOLIC ACID TABLET (FP) PO SCH (09:27)
[2016-09-29] MEDS: FUROSEMIDE 20 MG TABLET (FP) PO SCH (09:27)
[2016-09-29] MEDS: SPIRONOLACTONE 25 MG TABLET (FP) PO SCH ×2 (09:27→17:03)
[2016-09-29] MEDS: ENALAPRIL MALEATE 10 MG TABLET (FP) PO SCH ×2 (09:27→21:08)
[2016-09-29] MEDS: ATORVASTATIN CA 20 MG TABLET (FP) PO SCH (21:08)
[2016-09-29] MEDS: THIAMINE HCL 100 MG TABLET (FP) PO SCH (21:08)
[2016-09-29] MEDS: diphenhydrAMINE HCL 50 MG CAPSULE PO PRN (21:08)
[2016-09-29] MEDS: QUEtiapine FUMARATE 100 MG TABLET (FP) PO SCH (21:08)
[2016-09-29] MEDS: MIRTAZAPINE 30 MG TABLET (FP) PO SCH (21:09)
[2016-09-30] MEDS: amLODIPine BESYLATE 10 MG TABLET (FP) PO SCH (07:05)
[2016-09-30] MEDS: metFORMIN HCL 500 MG TABLET (FP) PO SCH ×2 (07:06→16:40)
[2016-09-30] MEDS: ENALAPRIL MALEATE 10 MG TABLET (FP) PO SCH ×2 (09:30→21:05)
[2016-09-30] MEDS: FUROSEMIDE 20 MG TABLET (FP) PO SCH (09:30)
[2016-09-30] MEDS: SPIRONOLACTONE 25 MG TABLET (FP) PO SCH ×2 (09:30→17:01)
[2016-09-30] MEDS: PRENATAL VITAMINS W/ FOLIC ACID TABLET (FP) PO SCH (09:31)
[2016-09-30] MEDS: MIRTAZAPINE 30 MG TABLET (FP) PO SCH (21:05)
[2016-09-30] MEDS: THIAMINE HCL 100 MG TABLET (FP) PO SCH (21:05)
[2016-09-30] MEDS: diphenhydrAMINE HCL 50 MG CAPSULE PO PRN (21:05)
[2016-09-30] MEDS: ATORVASTATIN CA 20 MG TABLET (FP) PO SCH (21:05)
[2016-09-30] MEDS: QUEtiapine FUMARATE 100 MG TABLET (FP) PO SCH (21:05)
[2016-10-01] MEDS: metFORMIN HCL 500 MG TABLET (FP) PO SCH ×2 (06:20→16:46)
[2016-10-01] MEDS: amLODIPine BESYLATE 10 MG TABLET (FP) PO SCH (06:20)
[2016-10-01] MEDS: PRENATAL VITAMINS W/ FOLIC ACID TABLET (FP) PO SCH (09:38)
[2016-10-01] MEDS: ENALAPRIL MALEATE 10 MG TABLET (FP) PO SCH ×2 (09:38→21:02)
[2016-10-01] MEDS: FUROSEMIDE 20 MG TABLET (FP) PO SCH (09:38)
[2016-10-01] MEDS: SPIRONOLACTONE 25 MG TABLET (FP) PO SCH ×2 (09:38→17:45)
[2016-10-01] MEDS: MIRTAZAPINE 30 MG TABLET (FP) PO SCH (21:02)
[2016-10-01] MEDS: QUEtiapine FUMARATE 100 MG TABLET (FP) PO SCH (21:02)
[2016-10-01] MEDS: ATORVASTATIN CA 20 MG TABLET (FP) PO SCH (21:02)
[2016-10-01] MEDS: THIAMINE HCL 100 MG TABLET (FP) PO SCH (21:02)
[2016-10-01] MEDS: diphenhydrAMINE HCL 50 MG CAPSULE PO PRN (21:03)
[2016-10-02] MEDS: amLODIPine BESYLATE 10 MG TABLET (FP) PO SCH (06:04)
[2016-10-02] MEDS: metFORMIN HCL 500 MG TABLET (FP) PO SCH ×2 (06:45→17:07)
[2016-10-02] MEDS: PRENATAL VITAMINS W/ FOLIC ACID TABLET (FP) PO SCH (09:51)
[2016-10-02] MEDS: FUROSEMIDE 20 MG TABLET (FP) PO SCH (09:51)
[2016-10-02] MEDS: SPIRONOLACTONE 25 MG TABLET (FP) PO SCH ×2 (09:52→17:07)
[2016-10-02] MEDS: ENALAPRIL MALEATE 10 MG TABLET (FP) PO SCH ×2 (09:52→21:06)
--- NOTE | 2016-10-02 09:59 | PN ---
Psychiatric Progress Note Vital Signs: Vital Signs Period Temp Pulse Resp BP Sys/Caldwell Pulse Ox Last 24 Hr 97.5 F-978.6 F 101-109 18-20 115-139/75-98 Date of Session: 10/02/16 Chief Complaint:: "I feel depressed" HPI: Patient addressing Alcohol and Opoid Dependence comorbid with Mood Disorder ROS: HTN, Positive PPD treated Current Medications: Active Medications Generic Name Dose Route Start Last Admin Trade Name Freq PRN Reason Stop Dose Admin Acetaminophen 650 mg 09/07/16 18:51 Tylenol - PO Q4H PRN PAIN Al Hydroxide/Mg Hydroxide 30 ml 09/07/16 18:51 Mylanta Oral Suspension - PO Q6H PRN DYSPEPSIA Albuterol Sulfate 0 puff 09/08/16 09:28 Ventolin Hfa Inhaler - IH Q4H PRN SHORT OF BREATH/WHEEZING Amlodipine Besylate 10 mg 09/10/16 06:00 10/02/16 06:04 Norvasc - PO 10 mg DAILY@0600 JONATHAN Administration Atorvastatin Calcium 20 mg 09/08/16 22:00 10/01/16 21:02 Lipitor - PO 20 mg HS JONATHAN Administration Diphenhydramine HCl 50 mg 09/07/16 18:51 10/01/16 21:03 Benadryl - PO 50 mg HSMR1 PRN Administration INSOMNIA Enalapril Maleate 20 mg 09/08/16 10:00 10/02/16 09:52 Vasotec - PO 20 mg BID JONATHAN Administration Eucalyptus/Menthol/Phenol/Sorbitol 1 each 09/07/16 18:51 Cepastat Lozenge - MM Q4H PRN SORE THROAT Furosemide 20 mg 09/08/16 10:00 10/02/16 09:51 Lasix - PO 20 mg DAILY JONATHAN Administration Guaifenesin 10 ml 09/07/16 18:51 Robitussin Dm - PO Q6H PRN COUGH Hydroxyzine Pamoate 50 mg 09/07/16 18:51 09/20/16 02:56 Vistaril - PO 50 mg Q4H PRN Administration AGITATION Ibuprofen 400 mg 09/07/16 18:51 Motrin - PO Q6H PRN SEVERE PAIN Loperamide HCl 4 mg 09/07/16 18:51 Imodium - PO Q6H PRN DIARRHEA Magnesium Citrate 300 ml 09/07/16 18:51 Citroma - PO Q48H PRN CONSTIPATION Magnesium Hydroxide 30 ml 09/07/16 18:51 09/13/16 22:03 Milk Of Magnesia - PO 30 ml DAILY PRN Administration CONSTIPATION Metformin HCl 500 mg 09/08/16 16:30 10/02/16 06:45 Glucophage - PO 500 mg BID@0700,1630 JONATHAN Administration Mirtazapine 30 mg 09/10/16 22:00 10/01/16 21:02 Remeron - PO 30 mg HS JONATHAN Administration Nicotine Polacrilex 4 mg 09/07/16 18:51 Nicorette Gum - BC Q2H PRN NICOTINE REPLACEMENT RX Multivit/Folic Acid/Iron 1 tab 09/08/16 10:00 10/02/16 09:51 Vitamins ([facility]) - PO 1 tab DAILY JONATHAN Administration Pseudoephedrine/Triprolidine 1 combo 09/07/16 18:51 Actifed - PO TID PRN NASAL CONGESTION Quetiapine Fumarate 100 mg 09/10/16 22:00 10/01/16 21:02 Seroquel - PO 100 mg HS JONATHAN Administration Spironolactone 25 mg 09/08/16 10:00 10/02/16 09:52 Aldactone - PO 25 mg BID@1000,1800 JONATHAN Administration Thiamine HCl 100 mg 09/07/16 22:00 10/01/16 21:02 Vitamin B1 - PO 100 mg HS JONATHAN Administration Medication(s) Change(s): Increase Remeron to 45 mg po HS Current Side Effect: No Lab tests ordered: Yes Lab tests reviewed: Yes Provider note:: Patient reports that he has been feeling depessed lately and requests to be ordered Flaco maravillach has helped him in the past. He is currently on Remeron 30 mg po HS and claims that it is not helping. After being told that anti-depressant medication takes 3 to 6 weeks to be effective, he opted to have Remeron dosage increased rather than switching to a new medication. Total face to face time:: 25 Mental Status Exam - Mental Status Exam Alert and Oriented to: Time, Place, Person Cognitive Function: Fair Patient Appearance: Well Groomed Mood: Depressed Affect: Appropriate Patient Behavior: Cooperative Speech Pattern: Clear Voice Loudness: Normal Thought Process: Intact, Goal Oriented Thought Disorder: Not Present Hallucinations: Denies Suicidal Ideation: Denies Homicidal Ideation: Denies Insight/Judgement: Fair Sleep: Poorly Appetite: Good Muscle strength/Tone: Normal Gait/Station: Normal Psychiatric Treatment Plan - Problem List (1) Alcohol dependence with uncomplicated withdrawal Current Visit: Yes (2) Opioid dependence with withdrawal Current Visit: Yes (3) Mood disorder Current Visit: Yes (4) MDD (major depressive disorder) Current Visit: Yes (5) COPD (chronic obstructive pulmonary disease) Current Visit: Yes Qualifiers: COPD type: emphysema Emphysema type: other Qualified Code(s): J43.8 - Other emphysema (6) Hypertension Current Visit: Yes Qualifiers: Hypertension type: essential hypertension Qualified Code(s): I10 - Essential (primary) hypertension (7) Positive PPD, treated Current Visit: Yes Initial treatment plan: 1) Discontinue Remeron 30 mg po HS. 2) Start Remeron 45 mg po HS. 3) Monitor progress
[2016-10-02] MEDS: THIAMINE HCL 100 MG TABLET (FP) PO SCH (21:06)
[2016-10-02] MEDS: ATORVASTATIN CA 20 MG TABLET (FP) PO SCH (21:06)
[2016-10-02] MEDS: QUEtiapine FUMARATE 100 MG TABLET (FP) PO SCH (21:06)
[2016-10-02] MEDS: MIRTAZAPINE 15 MG TABLET (FP) PO SCH (21:07)
[2016-10-03] MEDS: amLODIPine BESYLATE 10 MG TABLET (FP) PO SCH (06:34)
[2016-10-03] MEDS: metFORMIN HCL 500 MG TABLET (FP) PO SCH ×2 (07:12→16:34)
[2016-10-03] MEDS: PRENATAL VITAMINS W/ FOLIC ACID TABLET (FP) PO SCH (09:39)
[2016-10-03] MEDS: ENALAPRIL MALEATE 10 MG TABLET (FP) PO SCH ×2 (09:39→21:06)
[2016-10-03] MEDS: SPIRONOLACTONE 25 MG TABLET (FP) PO SCH ×2 (09:39→17:03)
[2016-10-03] MEDS: FUROSEMIDE 20 MG TABLET (FP) PO SCH (09:39)
[2016-10-03] MEDS: THIAMINE HCL 100 MG TABLET (FP) PO SCH (21:06)
[2016-10-03] MEDS: MIRTAZAPINE 15 MG TABLET (FP) PO SCH (21:06)
[2016-10-03] MEDS: diphenhydrAMINE HCL 50 MG CAPSULE PO PRN (21:06)
[2016-10-03] MEDS: QUEtiapine FUMARATE 100 MG TABLET (FP) PO SCH (21:06)
[2016-10-03] MEDS: ATORVASTATIN CA 20 MG TABLET (FP) PO SCH (21:07)
[2016-10-04] MEDS: amLODIPine BESYLATE 10 MG TABLET (FP) PO SCH (06:10)
[2016-10-04] MEDS: metFORMIN HCL 500 MG TABLET (FP) PO SCH ×2 (07:09→16:41)
--- NOTE | 2016-10-04 08:10 | PN ---
S Progress Note Note: bgm 289 ,will increase to metformin 1000 mg po bid,bgm monitoring
[2016-10-04] MEDS ORDERED: metFORMIN HCL 500 MG TABLET (FP) PO SCH (09:00)
[2016-10-04] MEDS: FUROSEMIDE 20 MG TABLET (FP) PO SCH (09:24)
[2016-10-04] MEDS: ENALAPRIL MALEATE 10 MG TABLET (FP) PO SCH ×2 (09:24→21:18)
[2016-10-04] MEDS: PRENATAL VITAMINS W/ FOLIC ACID TABLET (FP) PO SCH (09:24)
[2016-10-04] MEDS: SPIRONOLACTONE 25 MG TABLET (FP) PO SCH ×2 (09:24→18:26)
--- NOTE | 2016-10-04 10:27 | PN ---
Psychiatric Progress Note Vital Signs: Vital Signs Period Temp Pulse Resp BP Sys/Caldwell Pulse Ox Last 24 Hr 97.8 F 101-108 18-20 113-124/76-83 Date of Session: 10/04/16 Chief Complaint:: Discharge Note HPI: Patient addressing Alcohol nand Opoid Dependence comorbid with Mood Disorder ROS: COPD, HTN, +PPD treated were medically managed Current Medications: Active Medications Generic Name Dose Route Start Last Admin Trade Name Freq PRN Reason Stop Dose Admin Acetaminophen 650 mg 09/07/16 18:51 Tylenol - PO Q4H PRN PAIN Al Hydroxide/Mg Hydroxide 30 ml 09/07/16 18:51 Mylanta Oral Suspension - PO Q6H PRN DYSPEPSIA Albuterol Sulfate 0 puff 09/08/16 09:28 Ventolin Hfa Inhaler - IH Q4H PRN SHORT OF BREATH/WHEEZING Amlodipine Besylate 10 mg 09/10/16 06:00 10/04/16 06:10 Norvasc - PO 10 mg DAILY@0600 JONATHAN Administration Atorvastatin Calcium 20 mg 09/08/16 22:00 10/03/16 21:07 Lipitor - PO 20 mg HS JONATHAN Administration Diphenhydramine HCl 50 mg 09/07/16 18:51 10/03/16 21:06 Benadryl - PO 50 mg HSMR1 PRN Administration INSOMNIA Enalapril Maleate 20 mg 09/08/16 10:00 10/04/16 09:24 Vasotec - PO 20 mg BID JONATHAN Administration Eucalyptus/Menthol/Phenol/Sorbitol 1 each 09/07/16 18:51 Cepastat Lozenge - MM Q4H PRN SORE THROAT Furosemide 20 mg 09/08/16 10:00 10/04/16 09:24 Lasix - PO 20 mg DAILY JONATHAN Administration Guaifenesin 10 ml 09/07/16 18:51 Robitussin Dm - PO Q6H PRN COUGH Hydroxyzine Pamoate 50 mg 09/07/16 18:51 09/20/16 02:56 Vistaril - PO 50 mg Q4H PRN Administration AGITATION Ibuprofen 400 mg 09/07/16 18:51 Motrin - PO Q6H PRN SEVERE PAIN Loperamide HCl 4 mg 09/07/16 18:51 Imodium - PO Q6H PRN DIARRHEA Magnesium Citrate 300 ml 09/07/16 18:51 Citroma - PO Q48H PRN CONSTIPATION Magnesium Hydroxide 30 ml 09/07/16 18:51 09/13/16 22:03 Milk Of Magnesia - PO 30 ml DAILY PRN Administration CONSTIPATION Metformin HCl 1,000 mg 10/04/16 16:30 Glucophage - PO BID@0700,1630 JONATHAN Mirtazapine 45 mg 10/02/16 22:00 10/03/16 21:06 Remeron - PO 45 mg HS JONATHAN Administration Nicotine Polacrilex 4 mg 09/07/16 18:51 Nicorette Gum - BC Q2H PRN NICOTINE REPLACEMENT RX Multivit/Folic Acid/Iron 1 tab 09/08/16 10:00 10/04/16 09:24 Vitamins ([facility]) - PO 1 tab DAILY JONATHAN Administration Pseudoephedrine/Triprolidine 1 combo 09/07/16 18:51 Actifed - PO TID PRN NASAL CONGESTION Quetiapine Fumarate 100 mg 09/10/16 22:00 10/03/16 21:06 Seroquel - PO 100 mg HS JONATHAN Administration Spironolactone 25 mg 09/08/16 10:00 10/04/16 09:24 Aldactone - PO 25 mg BID@1000,1800 JONATHAN Administration Thiamine HCl 100 mg 09/07/16 22:00 10/03/16 21:06 Vitamin B1 - PO 100 mg HS JONATHAN Administration Current Side Effect: No Lab tests ordered: Yes Lab tests reviewed: Yes Provider note:: Patient will complete this program on 10/05/16. He has met his treatment goals and will continue to address his issues by attending AA/NA since he refused referral to outpatient treatment. Told conventional mortgage underwriter that from his participation in this program, he has learned the importance of expressing his feelings, making meetings and establishing a positive social network. He responded well to Seroquel 100 mg po HS and Remeron 45 mg po HS. Scripts for 30 days supply for these2 medications will be electonically transmitte to [facility] at [address] [place] [address]. He is stable for discharge on 10/05/16 Total face to face time:: 35 Mental Status Exam - Mental Status Exam Alert and Oriented to: Time, Place, Person Cognitive Function: Fair Patient Appearance: Well Groomed Mood: Hopeful, Euthymic Affect: Appropriate Patient Behavior: Cooperative Speech Pattern: Clear Voice Loudness: Normal Thought Process: Intact, Goal Oriented Thought Disorder: Not Present Hallucinations: Denies Suicidal Ideation: Denies Homicidal Ideation: Denies Insight/Judgement: Fair Sleep: Fair Appetite: Good Muscle strength/Tone: Normal Gait/Station: Normal Psychiatric Treatment Plan - Problem List (5) COPD (chronic obstructive pulmonary disease) Qualifiers: COPD type: emphysema Emphysema type: other Qualified Code(s): J43.8 - Other emphysema (6) Hypertension Qualifiers: Hypertension type: essential hypertension Qualified Code(s): I10 - Essential (primary) hypertension (7) Positive PPD, treated Initial treatment plan: Patient will be discharged tomorrow and will be attending AA/NA
[2016-10-04] MEDS: MIRTAZAPINE 15 MG TABLET (FP) PO SCH (21:17)
[2016-10-04] MEDS: THIAMINE HCL 100 MG TABLET (FP) PO SCH (21:17)
[2016-10-04] MEDS: ATORVASTATIN CA 20 MG TABLET (FP) PO SCH (21:18)
[2016-10-04] MEDS: QUEtiapine FUMARATE 100 MG TABLET (FP) PO SCH (21:18)
[2016-10-05] MEDS: amLODIPine BESYLATE 10 MG TABLET (FP) PO SCH (06:09)
[2016-10-05] MEDS: metFORMIN HCL 500 MG TABLET (FP) PO SCH (06:09)
[2016-10-05 06:26] VITALS: BP 127/78; PULSE 100; TEMP 97.9
[2016-10-05] MEDS: SPIRONOLACTONE 25 MG TABLET (FP) PO SCH (09:53)
[2016-10-05] MEDS: PRENATAL VITAMINS W/ FOLIC ACID TABLET (FP) PO SCH (09:53)
[2016-10-05] MEDS: FUROSEMIDE 20 MG TABLET (FP) PO SCH (09:53)
[2016-10-05] MEDS: ENALAPRIL MALEATE 10 MG TABLET (FP) PO SCH (09:53)
== END 2016-10-05 10:00 | disposition home or self-care (01) | DRG 895 ==
LOC: YASAS 13:30 → Y3W 18:49
PROVIDERS: ADMIT Psychiatry & Neurology Psychiatry; ATTEND Psychiatry & Neurology Psychiatry
PROC: HZ42ZZZ Group Counseling for Substance Abuse Treatment, Cognitive-Behavioral (ICD-10-PCS; principal; 2016-10-05)
DX: F11.23 Opioid dependence with withdrawal (principal); F10.230 Alcohol dependence with withdrawal, uncomplicated; F39 Unspecified mood [affective] disorder; I10 Essential (primary) hypertension; J43.8 Other emphysema; R76.11 Nonspecific reaction to tuberculin skin test without active tuberculosis
CPT/HCPCS: 36415; 71020-TC; 80053; 81003; 81015; 85027; 86593; 86803; 87389; 93005; 93010